=== PATIENT | male | born 1965 | race African-American/Black ===

== ENCOUNTER 2023-12-16 19:41 | Emergency (ER) | payer MEDICAID, OTHER ==
[2023-12-16 20:03] VITALS: RESP 16
[2023-12-16 20:32] VITALS: TEMP 97.8
--- NOTE | 2023-12-16 21:22 | ED ---
General Adult HPI - General Chief complaint: Recheck/Abnormal Lab/Rx Stated complaint: hypertension Time Seen by Provider: 12/16/23 20:44 Source: patient, RN notes reviewed, old records reviewed Mode of arrival: ambulatory Limitations: no limitations - History of Present Illness Initial comments: 58-year-old male presenting for medication refill, hypertension. Patient checked into [facility] today and was noted to have high blood pressure. He did not take his medications. He has no complaints, no headache, no chest pain, no difficulty breathing. Patient is currently on aspirin, Plavix, atorvastatin, nifedipine, Coreg. - Related Data Previous Rx's Medication Instructions Recorded Aspirin EC [Ecotrin Low Dose] 81 mg PO DAILY #30 tab 12/16/23 Atorvastatin [Lipitor] 80 mg PO HS #30 tab 12/16/23 Clopidogrel [Plavix] 75 mg PO DAILY #30 tab 12/16/23 Furosemide [Lasix] 20 mg PO DAILY #30 tab 12/16/23 NIFEdipine XL [Procardia XL] 90 mg PO DAILY #30 tab 12/16/23 carvediloL [Coreg] 25 mg PO BID #30 tab 12/16/23 Allergies Allergy/AdvReac Type Severity Reaction Status Date / Time No Known Allergies Allergy Verified 12/16/23 20:50 Review of Systems ROS Statement: Those systems with pertinent positive or pertinent negative responses have been documented in the HPI. ROS Other: All systems not noted in ROS Statement are negative. Past Medical History Past Medical History: CVA/TIA, Hyperlipidemia, Hypertension Past Surgical History: Pacemaker Smoking Status: Current every day smoker Past Alcohol Use History: Daily Past Drug Use History: Cocaine General Exam Limitations: no limitations General appearance: alert, in no apparent distress Head exam: Present: atraumatic, normocephalic Eye exam: Present: normal appearance, PERRL ENT exam: Present: normal exam Respiratory exam: Present: normal lung sounds bilaterally. Absent: respiratory distress Cardiovascular Exam: Present: regular rate, normal rhythm GI/Abdominal exam: Present: soft. Absent: distended, tenderness, guarding Extremities exam: Present: normal inspection Neurological exam: Present: alert, oriented X3 Psychiatric exam: Present: normal affect, normal mood Skin exam: Present: warm, dry, intact Course Vital Signs 12/16/23 12/16/23 20:01 21:03 Temperature 97.8 F Pulse Rate 67 66 Respiratory 16 16 Rate Blood Pressure 166/114 174/105 O2 Sat by Pulse 98 99 Oximetry Medical Decision Making - Medical Decision Making Was pt. sent in by a medical professional or institution ([facility], [employer], urgent care, hospital, or skilled nursing...) When possible be specific @ -No Did you speak to anyone other than the patient for history (EMS, parent, family, police, friend...)? What history was obtained from this source @ -No Did you review nursing and triage notes (agree or disagree)? Why? @ -I reviewed and agree with nursing and triage notes Were old charts reviewed (outside hosp., previous admission, EMS record, old EKG, old radiological studies, urgent care reports/EKG's, skilled nursing records)? Report findings @ -No old charts were reviewed Differential Diagnosis medication refill, hypertension EKG interpreted by me (3pts min.). @ -As above X-rays interpreted by me (1pt min.). @ -None done CT interpreted by me (1pt min.). @ -None done U/S interpreted by me (1pt. min.). @ -None done What testing was considered but not performed or refused? (CT, X-rays, U/S, labs)? Why? @ -None What meds were considered but not given or refused? Why? @ -None Did you discuss the management of the patient with other professionals (professionals i.e. [facility], [employer], lab, RT, psych nurse, secondary social studies teacher, service delivery analyst, teacher, founder chairman and chief creative officer, shoe caser)? Give summary @ -No Was smoking cessation discussed for >3mins.? @ -No Was critical care preformed (if so, how long)? @ -No Were there social determinants of health that impacted care today? How? (Homelessness, low income, unemployed, alcoholism, drug addiction, transportation, low edu. Level, literacy, decrease access to med. care, fci, rehab)? @ -No Was there de-escalation of care discussed even if they declined (Discuss DNR or withdrawal of care, Hospice)? DNR status @ -No What co-morbidities impacted this encounter? (DM, HTN, Smoking, COPD, CAD, Cancer, CVA, ARF, Chemo, Hep., AIDS, mental health diagnosis, sleep apnea, morbid obesity)? @ -[Hypertension, previous CVA Was patient admitted / discharged? Hospital course, mention meds given and route, prescriptions, significant lab abnormalities, going to OR and other pertinent info. @58-year-old male with medication refill, hypertension, did not take his medications today. Patient's medications are refilled, he is instructed to return to the emergency department if he should develop symptoms. Undiagnosed new problem with uncertain prognosis? @ -No Drug Therapy requiring intensive monitoring for toxicity (Heparin, Nitro, Insulin, Cardizem)? @ -No Were any procedures done? @ -No Diagnosis/symptom? @ -Hypertension, medication refill Acute, or Chronic, or Acute on Chronic? @ -Default Uncomplicated (without systemic symptoms) or Complicated (systemic symptoms)? @ -Default Side effects of treatment? @ -No Exacerbation, Progression, or Severe Exacerbation? @ -No Poses a threat to life or bodily function? How? (Chest pain, [place], [place], pneumonia, PE, COPD, DKA, ARF, appy, cholecystitis, CVA, Diverticulitis, Homicidal, Suicidal, threat to staff... and all critical care pts) @ -No Disposition Clinical Impression: Medication refill Disposition: HOME SELF-CARE Instructions (If sedation given, give patient instructions): Medicine Refill (ED) Prescriptions: carvediloL [Coreg] 25 mg PO BID #30 tab Aspirin EC [Ecotrin Low Dose] 81 mg PO DAILY #30 tab Furosemide [Lasix] 20 mg PO DAILY #30 tab Atorvastatin [Lipitor] 80 mg PO HS #30 tab Clopidogrel [Plavix] 75 mg PO DAILY #30 tab NIFEdipine XL [Procardia XL] 90 mg PO DAILY #30 tab Is patient prescribed a controlled substance at d/c from ED?: No Referrals: Ronn Adams MD [Primary Care Provider] - 1-2 days Time of Disposition: 21:21
[2023-12-16 21:36] VITALS: BP 174/105; PULSE 66
== END 2023-12-16 21:25 | disposition home or self-care (01) ==
LOC: EC 19:41
DX: Z76.0 Encounter for issue of repeat prescription (principal); I10 Essential (primary) hypertension; F17.200 Nicotine dependence, unspecified, uncomplicated; Z86.73 Personal history of transient ischemic attack (TIA), and cerebral infarction without residual deficits; Z95.0 Presence of cardiac pacemaker
CPT/HCPCS: 99283